=== PATIENT | male | born 1970 | race Caucasian/White ===

== ENCOUNTER → 2017-01-31 | Outpatient (REF) | LOC: WSOH 10:50 | DX: Z00.00 Encounter for general adult medical examination without abnormal findings (principal) ==

== ENCOUNTER 2018-03-21 14:14 | Inpatient (IN) | payer BC ==
[~2018-03-21] VITALS: Ht 175.3 cm; Wt 75.4 kg
[2018-03-27] VITALS (10 sets, daily range): BP systolic 101–125; BP diastolic 58–79; PULSE 64–86; TEMP 97.8–98
[2018-03-27 12:45] LABS: HEMATOCRIT 51.3 % (42.0-52.0); HEMOGLOBIN 17.4 g/dl (13.5-18.0); MEAN CELL VOLUME 98 fl (80.0-100.0); MEAN CORPUSCULAR HEMOGLOBIN 33 pg (27.0-31.0); MEAN CORPUSCULAR HGB CONC 34 g/dl (33.0-37.0); MEAN PLATELET VOLUME 10.4 fl (7.4-10.4); PLATELET COUNT 189 K/mm3 (130-400); RED BLOOD COUNT 5.26 M/mm3 (4.20-5.60); REDCELL DISTRIBUTION WIDTH-CV 12.2 % (11.5-14.5)
[2018-03-27] MEDS ORDERED: OSTEO-BI-FLEX 21 TAB PO (12:49)
[2018-03-27 18:17] LABS: BASO % 0.2 % (0.0-2.0); GRAN # 12.1 (1.4-6.5); GRAN % 93.4 % (42.2-75.2); HEMOGLOBIN 15.6 g/dl (13.5-18.0); LYMPH # 0.6 (1.2-3.4); LYMPH % 4.5 % (20.0-51.0); MEAN CELL VOLUME 96 fl (80.0-100.0); MEAN CORPUSCULAR HEMOGLOBIN 33 pg (27.0-31.0); MEAN CORPUSCULAR HGB CONC 35 g/dl (33.0-37.0); MEAN PLATELET VOLUME 10.7 fl (7.4-10.4); MONO # 0.2 (0.1-0.6); MONO % 1.7 % (1.7-9.3); PLATELET COUNT 167 K/mm3 (130-400); RED BLOOD COUNT 4.67 M/mm3 (4.20-5.60); REDCELL DISTRIBUTION WIDTH-CV 12.5 % (11.5-14.5)
[2018-03-27 18:25] LABS: CALCIUM 8.6 mg/dL (8.4-10.2); CREATININE, serum 0.92 mg/dL (0.66-1.25); POTASSIUM 3.6 mmol/L (3.4-5.0)
[2018-03-28 00:23] VITALS: BP 109/59; PULSE 73; TEMP 98.5
[2018-03-28 06:07] VITALS: BP 128/67; PULSE 73; TEMP 98.5
[2018-03-28 07:27] VITALS: BP 102/65; PULSE 75; TEMP 98.6
[2018-03-28 11:08] VITALS: BP 110/58; PULSE 72; TEMP 98.3
[2018-03-28 15:16] VITALS: BP 118/70; PULSE 67; TEMP 97.7
[2018-03-28 20:09] VITALS: BP 128/75; PULSE 87; TEMP 98.2
[2018-03-29 03:34] VITALS: BP 136/67; PULSE 92; TEMP 98
[2018-03-29 07:19] VITALS: BP 115/70; PULSE 72; TEMP 98.4
[2018-03-29 12:05] VITALS: BP 129/83; PULSE 82; TEMP 98.3
[2018-03-29 16:00] VITALS: BP 110/75; PULSE 79; TEMP 97.9
== END 2018-03-29 16:35 | disposition home or self-care (01) | DRG 331 ==
LOC: INPTSU 03-27 11:49 → SURG 03-27 16:00
PROVIDERS: Nurse Anesthetist, Certified Registered; Surgery
PROC: 8E0W4CZ Robotic Assisted Procedure of Trunk Region, Percutaneous Endoscopic Approach (ICD-10-PCS; 2018-03-27)
PROC: 0DTF4ZZ Resection of Right Large Intestine, Percutaneous Endoscopic Approach (ICD-10-PCS; principal; 2018-03-27 16:00)
DX: C18.2 Malignant neoplasm of ascending colon (principal)
CPT/HCPCS: A4314; A9284; J0360; J0690; J1100; J1170; J1650; J1885; J2405; J2550; J2704; J3010; J7120

== ENCOUNTER 2020-05-18 09:01 | Outpatient (CLI) | payer BC ==
[2020-05-18] VITALS (19 sets, daily range): BP systolic 110–142; BP diastolic 77–108; PULSE 58–71
[~2020-05-18] VITALS: Ht 175.3 cm; Wt 87.4 kg
[~2020-05-18 09:01] MED LIST: OSTEO-BI-FLEX 21 TAB PO
--- NOTE | 2020-05-18 10:00 | NUR ---
Pt to ct per ambulation. Pt positioned on table with left side down. Monitors applied and O2 on at 2l/nc.
--- NOTE | 2020-05-18 10:15 | NUR ---
Dr Bright into room. Pt repositioned further onto left side. Pt rescanned. Dr Bright talks with pt regarding procedure.
--- NOTE | 2020-05-18 10:40 | NUR ---
pt having increased pain from procedure. Pt given fentanyl to help with pain.
--- NOTE | 2020-05-18 10:45 | NUR ---
Dr Rodriguez into look at images with Dr Bright.
--- NOTE | 2020-05-18 10:50 | NUR ---
Dr Bright talks with pt regarding procedure and the difficulty of attempting to get the nodule due to breathing and size of nodule. Pt informed he has slight bleeding into left lung. [id number] Procedure cancelled.
--- NOTE | 2020-05-18 12:59 | NUR ---
INt discontinued intact. Discharge instructions given. Transferred to private car b y [facility]
== END 2020-05-18 13:00 | disposition home or self-care (01) ==
LOC: COL.RAD 09:01
DX: C18.9 Malignant neoplasm of colon, unspecified (principal); R91.1 Solitary pulmonary nodule
CPT/HCPCS: J2250; J3010